=== PATIENT | male | born 1955 | race Caucasian/White ===

== ENCOUNTER 2016-07-02 08:25 | Inpatient (IN) | payer OTHER ==
--- NOTE | 2016-06-25 14:38 | NUR ---
JOINT CAMP: Patient attended joint camp at [facility], patient is coming in for left knee replacement on 07/02/16. Patient does have stairs to enter the home but no stairs in the home. Patient is planning to have Lisa Martinez) to have for help post discharge and she will be transporting patient home. Patient does have someone at home helping with meals and cooking. Patient has never received Home health or SNF services, but has been connected with outpatient physical therapy. Patient has bath bench,elevated toilet seat,beside commode and walker.
[2016-07-02] VITALS (10 sets, daily range): BP systolic 136–159; BP diastolic 74–99; PULSE 66–81; RESP 10–20; O2SAT 93–99
[~2016-07-02] VITALS: Ht 179.1 cm; Wt 96.9 kg
[2016-07-02] MEDS: Lactated Ringer's 1,000 ML IV SCH ×3 (05:00→10:17)
[~2016-07-02 08:25] MED LIST: CeFAZolin 2 Gm/50 mL D5W IV Premix IV ONE; GABA-500 PO; IBUP200C PO; NAPR220C11 PO
[2016-07-02] MEDS ORDERED: fentaNYL-PF 50 mCg/mL 2 mL Inj ONE (08:34)
--- NOTE | 2016-07-02 09:56 | PCM.HPANE ---
Patient Data Surgeon Admitting Provider: Attending Provider:Javed Cortez DO Primary Care Physician:Yonatan Corey MD Other Provider:Mario Doss Anesthesia Reason for Visit Left Knee Arthritis Ht/WT & BMI Height (Feet): 5 Height (Inches): 10.50 Weight (Kilograms): 97.7 Body Mass Index 30.00 Allergies Coded Allergies: hydrocodone (Verified Allergy, Unknown, gi upset, 06/27/16) Uncoded Allergies: CODIENE (Allergy, Unknown, gi upset, 07/02/16) Past Anesthesia History Anesthesia History: Denies:: Abnormal Airway, Anesthesia Reactions, Difficult Intubation, Fam Anesthesia Reaction Diabetes History Hx Diabetes?: No MRSA MRSA: No Medications Hypertension Medication: No Home Meds Incl Beta Zak: No Reported Medications Ibuprofen 200 Mg [id number] Mg PO Q6H PRN For Pain Ref 0 06/27/16 Gabapentin 100 Mg [id number] Mg PO TID 30 Days Ref 0 06/27/16 Naproxen Sodium (Aleve)220 Mg [id number] Mg PO PRN For Pain 06/27/16 History HEENT History: Denies:: Abnormal Airway Cataracts Difficult Intubation Dysphagia Glaucoma Hearing Problem Sinus Problem TMJ Cardiovascular History: Denies:: AICD Abdominal Aortic Aneurism Cardiac Surgery Chest Pain Congestive Heart Failure Coronary Artery Disease Edema Heart Murmur Hypertension Irregular Heartbeat Pacemaker Hx of Respiratory Problem?: Yes Respiratory History: Positive for:: Asthma (with seasonal allergies) Use of Inhalers / NEBS (with illnesses) Denies:: COPD Emphysema Oxygen Administration Pneumonia Tuberculosis Use of C-PAP Machine Hx Neurologic Problems?: No Neurological History: Denies:: CVA Dementia Dizziness Headaches Multiple Sclerosis Parkinson's Disease Seizures TIA Hx of GI Problems?: Yes Gastrointestinal History: Positive for:: Gastroesphageal Reflux Heartburn Denies:: Cirrhosis Gall Bladder Disease Gastrointestinal Bleeding Hepatitis Hiatal Hernia Liver Disease Rectal Bleeding Hx of Problems?: No Genitourinary History: Denies:: Kidney Stones Urinary Tract Infection Male Hx: Denies:: Prostate Problems Scrotal Mass Testicular Surgery Skin History: Denies:: History Skin Disorders? Pressure Ulcers Hx Musculoskeletal Problems?: Yes Musculoskeletal History: Positive for:: Back Injury (hx back injury 2003, GERARDO) Musculoskeletal Trauma (left knee current admission problem) Osteoarthritis (right knee also problematic, knuckles, wrists) Denies:: Fibromyalgia Joint Replacement Myasthenia Gravis Systemic Lupus Hx of Psycho/Social Problems?: No Psycho Social History: Denies:: Anxiety Hx Depression Hx Surgeries?: Yes (CTR, knee scope) Hx Any Other Health Problems?: Yes Other History: Denies:: Cancer Thyroid Disease History Blood Transfusions: Positive for:: Accept Blood Products? Denies:: Blood Transfusions Hx Diabetes: No Hx Alcohol Use: YesAlcoholic Drinks Per Day: 2 -3 beers monthlyHx Substance Use: Yes (marijuana daily)Have You Smoked inLast 12 mo: No Stop/Bang Treated for Sleep Apnea?: No Do You Have a CPAP Machine?: No S-Snoring: Do You Snore Loudly: No T-Tired: feel tired, fatigued: Yes O-Obsered: Observed not breath: No P-Blood Pressure: treated: No B- Body Mass Index > 35 kg/m2: No A- Age over 50: Yes N- Neck Large Circumference: No G- Gender Male: Yes LAWRENCE Total Score: 3 LAWRENCE Risk Assessment: Low Risk, <3 Yes Risk Assessment Category Category 1A: Patient has history of documented sleep apnea, and HAS NOT received any narcotic, sedative or anesthesia administration during this stay. Category 1B: Patient has history of documented sleep apnea, and HAS received any narcotic , sedative or anesthesia administration during this stay Category 2: Patient has SUSPECTED Obstructive Sleep Apnea, and HAS received any narcotic , sedative or anesthesia administration during this stay. Category 3: Patient has SUSPECTED Obstructive Sleep Apnea and HAS NOT received narcotic, sedative or anesthesia administration during this stay. Category 4: Outpatient in Procedural Areas with known sleep apnea or who screen positive for High Risk via the STOP/BANG questionnaire. Exam Exam Vital Signs Vital Signs Date Time Temp Pulse Resp B/P Pulse Ox O2 Delivery O2 Flow Rate FiO2 07/02/16 09:04 36.3 69 18 97 Room Air General Appearance: Oriented X3 HEENT/AIRWAY: MP 2 Lungs: Normal Air Movement Heart: Regular Rate/Rhythm Meds/Labs/Diagnostics Admission Meds Current Medications Lactated Ringer's 1,000 ml @ 120 mls/hr Q8H20M IV Last administered on t 08:25; Start 07/02/16 at 05:00; Stop 07/02/16 at 13:19 Vancomycin HCl/ Dextrose/Water (Vancocin Inj/ D5W) 500 ml @ 333.333 mls/hr ONCE ONCE IV Last administered on 07/02/16t 09:16; Start 07/02/16 at 08:00; Stop 07/02/16 at 09:29; Status DC Plan Impression Patient chart reviewed, patient interviewed and anesthestic plan with risks, benefits, and alternatives discussed, and informed consent obtained. NPO Status: WATER AT 0600 ASA Physical Status: ASA2 Mod Systemic Disease Anesthetic Plan: GA, Regional Block Bene/Risks/Altern/Consents: Yes HP Complete Prior to Induction: Yes Donny Cifuentes MD Jul 02, 2016 09:56
[2016-07-02] MEDS ORDERED: Lactated Ringer's 500 ML IV PRN (09:58)
[2016-07-02] MEDS ORDERED: Lactated Ringer's 1,000 ML IV SCH (09:58)
[2016-07-02] MEDS ORDERED: MetoCLOpramide 5 mg/mL 2 mL Inj IVPUSH PRN (10:00)
[2016-07-02] MEDS ORDERED: Dexamethasone 4 mg/mL Inj IVPUSH PRN (10:00)
[2016-07-02] MEDS ORDERED: Ondansetron 2 mg/mL 2 mL Inj IVPUSH PRN ×2 (10:00→12:20)
[2016-07-02] MEDS ORDERED: Phenylephrine 10,000 mCg/mL Inj IVPUSH PRN (10:00)
[2016-07-02] MEDS ORDERED: EPHEDrine Sulfate 50 mg/mL Inj IVPUSH PRN (10:00)
[2016-07-02] MEDS ORDERED: HYDROmorphone 1 mg/mL Inj IVPUSH PRN ×2 (10:00→12:20)
[2016-07-02] MEDS ORDERED: Labetalol 5 mg/mL 4 mL Inj IV PRN (10:00)
[2016-07-02] MEDS ORDERED: Ropivacaine-PF 0.5% 30 mL Inj EPIDURAL ONE (10:42)
[2016-07-02] MEDS ORDERED: diphenhydrAMINE 25 mg Capsule PO PRN (12:20)
[2016-07-02] MEDS ORDERED: Polyethylene Glycol (PEG) 17 Gm Powder PO PRN (12:20)
[2016-07-02] MEDS ORDERED: Magnesium Hydroxide 10 mL Oral Concentration PO PRN (12:20)
[2016-07-02] MEDS: fentaNYL-PF 50 mCg/mL 2 mL Inj IVPUSH PRN ×2 (12:50→13:32)
--- NOTE | 2016-07-02 13:16 | DRSVH ---
PROCEDURE: X-RAY LEFT KNEE, ONE OR TWO VIEWS ([id number]) INDICATIONS: post op TECHNIQUE: 2 view(s) of the knee acquired. COMPARISON: 12/13/2015 FINDINGS: Bones: Patient is status post knee joint arthroplasty. Hardware components are in expected position s. Visualized bony structures are intact. Soft tissues: Overlying postoperative changes are noted. There is dressing artifact over the anterio r knee. IMPRESSION: Acute postoperative changes of total left knee arthroplasty with expected appearance Dictated by: Colby Porter M.D. on 07/02/2016 at 13:14 Approved by: Colby Porter M.D. on 07/02/2016 at 13:15
--- NOTE | 2016-07-02 13:22 | PCM.ANEP1 ---
Post Anesthesia Phase 1 PACU Phase 1 Assessment Vital Signs Vital Signs Date Time Temp Pulse Resp B/P Pulse Ox O2 Delivery O2 Flow Rate FiO2 07/02/16 12:51 78 14 149/74 99 Simple Mask 10 07/02/16 12:35 81 14 155/99 98 Simple Mask 10 07/02/16 12:32 36.3 79 13 145/90 98 Simple Mask 10 07/02/16 09:04 36.3 69 18 97 Room Air Anesthetic Administered: GA Level of Alertness: Awake, talking Pain: No Nausea or Vomiting: No Airway Device: Oralpharangeal Airway Lungs: Clear to Auscultation, Normal Air Movement Donny Cifuentes MD Jul 02, 2016 13:22
--- NOTE | 2016-07-02 13:22 | PCM.ANEP2 ---
Post Anesthesia Evaluation ASA/CMS Post Anesthesia VS in Patient's Normal Range?: Yes Resp Stable; Airway Patent?: Yes CV Function & Hydration Stable: Yes Mental Status Recovered?: Yes Pain control Satisfactory?: Yes N/V Control Satisfactory?: Yes Donny Cifuentes MD Jul 02, 2016 13:22
--- NOTE | 2016-07-02 14:13 | OP ---
[address] [address] OPERATIVE REPORT PATIENT: SUYAPA KEITA : 1955 MR#: [id number] ADMIT: 07/02/2016 JOB ID: [id number] DATE OF SURGERY: 07/02/2016 PREOPERATIVE DIAGNOSIS(ES): Left knee degenerative joint disease. POSTOPERATIVE DIAGNOSIS(ES): Left knee degenerative joint disease. PROCEDURE: Left total knee arthroplasty. SURGEON: Javed Cortez DO RESTUARANT CREW WORKER: Yary Hair PA-C INDICATIONS: The patient is a 60-year-old male with left knee severe degenerative arthritis with failed conservative measures and wished to proceed with a left total knee arthroplasty. We discussed the risks, benefits, and possible complications of surgery. All questions were answered. He wished to proceed. The nursing home assistant administrator was required for the successful completion of this procedure. PROCEDURE IN DETAIL: The patient was brought to the operating room. He was given a preoperative antibiotic and adductor canal block as well as general anesthetic. The left lower extremity was sterilely prepped and draped. 1 g TXA was given preoperatively and a tourniquet was used for hemostasis. An incision was made over the anterior medial knee. Dissection was carefully carried through the subcutaneous tissue and electrocautery was used for hemostasis as needed. An incision was made in his quad tendon leaving a cuff of tendon to repair in the medial aspect. This was taken along the medial retinaculum and down onto the proximal medial tibial face. A small subperiosteal medial release was performed in order to gain exposure. The patella was everted. A portion of the fat pad was removed. A portion of the anterior horn, medial and lateral meniscus was removed. The femur was then instrumented with the intramedullary red and a 5 degree distal valgus cut angle was chosen with 10 mm planned resection. The distal femoral cutting block was pinned into position. The cut was performed. The femur was then sized, and felt to be a size 7. The tibia was next prepared with the extramedullary tibial cutting guide placed parallel to the long axis of the tibia in the AP and medial lateral planes, and a conservative tibial resection making sure that the tibial cutting guide was parallel to the long axis of the tibia, and after removing the cut surface, the femur was then readdressed and the distal femoral cuts were performed, completed with an osteotome. The notch cutting guide was then placed and pinned into position and the notch cut was made. The knee was then trialed with a size 7 femur, 7 tibia and this was fairly tight medially. Some additional medial release was performed as well as removing some medial osteophytes and this helped with achieving full flexion, full extension with equal gaps medially and laterally and the patella was then resurfaced with a free hand type technique, cut from initial thickness of 25 to a thickness of about 14. A 41 mm patellar button was chosen, drilled for and trialed, had excellent tracking. The femur was drilled. The tibia was drilled and punched and the components were then cemented into position beginning with the DePuy Attune fixed bearing 7 tibia followed by the DePuy Attune fixed bearing posterior stabilized 7 femur and the 41 mm patellar button. A 5 mm thick insert was chosen, impacted into position and the knee was held in some flexion while the cement was allowed to polymerize. The wound was irrigated and the tourniquet was let down. All excess cement was removed. Electrocautery was used. We implanted the final DePuy Attune posterior stabilized 5 thick poly. It allowed excellent tracking of the patella with equal gaps medially and laterally, full flexion, full extension. The wound was then closed with interrupted #1 Surgilon to close the medial retinaculum and quad tendon. The remainder of the quad tendon and retinaculum were closed with 0-Vicryl. The subcu was closed with 2-0 V lock and the skin was closed with a running subcuticular 3-0 V lock. Naropin was added as an adjunct local anesthetic. Sterile dressings were applied. The patient tolerated the procedure well. BLOOD LOSS: 100 cc. POSTOPERATIVE PROTOCOL: Have the patient weightbear to tolerance. Use a walker for ambulation and plan use of Percocet for postop pain and aspirin for DVT prophylaxis.
--- NOTE | 2016-07-02 14:40 | NUR ---
Arrived on Unit Patient arrived on floor in bed from PACU in stable condition. Dressing CDI. IV patent and NS @100. 95% 2L. A&Ox3. Patient reports 4/10 knee pain and denies nausea at this time. Patient orientated to call light, bed, and menu. Call light, phone, and tray table within reach. Will continue to monitor patient hourly.
[2016-07-02] MEDS ORDERED: Dexamethasone 4 mg/mL Inj ONE (14:47)
[2016-07-02] MEDS ORDERED: Ondansetron 2 mg/mL 2 mL Inj ONE (14:47)
[2016-07-02] MEDS ORDERED: Propofol 10,000 mCg/mL 20 mL Inj ONE (14:47)
[2016-07-02] MEDS ORDERED: MetoCLOpramide 5 mg/mL 2 mL Inj ONE (14:47)
[2016-07-02] MEDS: 0.9% Sodium Chloride 1,000 ML IV SCH ×2 (15:24→22:19)
[2016-07-02] MEDS: oxyCODONE-Acetamin 5-325 mg Tablet PO PRN (17:49)
[2016-07-02] MEDS: Sodium Chloride LOK Flush 10 mL Syringe IV SCH (17:49)
[2016-07-02] MEDS: CeFAZolin Inj 2 GM in IV Premix 1 EACH IV SCH (21:05)
[2016-07-02] MEDS: Senna-Docusate 8.6-50 mg Tablet PO SCH (21:10)
[2016-07-03] MEDS: Sodium Chloride LOK Flush 10 mL Syringe IV SCH ×3 (00:30→16:50)
[2016-07-03 02:03] VITALS: BP 160/89; PULSE 87; RESP 18; O2SAT 99
[2016-07-03] MEDS: oxyCODONE-Acetamin 5-325 mg Tablet PO PRN ×5 (02:45→20:20)
[2016-07-03] MEDS: CeFAZolin Inj 2 GM in IV Premix 1 EACH IV SCH (04:12)
[2016-07-03 05:49] VITALS: BP 153/96; PULSE 71; RESP 22; O2SAT 95
[2016-07-03 07:20] LABS: BASOPHILS % (AUTO) 0.1 % (0-3); EOSINOPHILS % (AUTO) 0.2 % (0-5); MONOCYTES % (AUTO) 15.6 % (4-12); Mean Corpuscular Volume 91.7 fL (81-100); NEUTROPHILS % (AUTO) 64.6 % (40-74); Platelet Count 200 bil/L (150-400)
[2016-07-03] MEDS: 0.9% Sodium Chloride 1,000 ML IV SCH ×2 (08:19→16:50)
[2016-07-03] MEDS: Senna-Docusate 8.6-50 mg Tablet PO SCH ×2 (08:22→20:21)
--- NOTE | 2016-07-03 09:32 | PCM.PNORTH ---
Subjective Date of Service: Jul 03, 2016 Visit Information: Reason for Visit Left Knee Arthritis Surgery/Surgery Date Post-Op Day # Date of Admission: Jul 02, 2016 at 14:46 Hospital Day # Subjective Found patient awake and alert and supine in bed with. No complaints pain at this time. Discussed participation with formal physical therapy and encouraged this for best results. Patient indicates that he is having his girlfriend set of his postop physical therapy and believes he will begin next Friday. Patient indicates he does have his girlfriend at home which will be his help when he discharges. Patient states that he has 15 steps to areas home but that he is experienced with sitting on the steps and moving up one at a time and feels that he will be able to enter his home this way without any problem. I have encouraged him to discuss this with physical therapy and let them know that he has practiced this prior to his surgery. I have also encouraged patient to discontinue IV pain medication as soon as possible moved by mouth pain medication in anticipation of discharge. Postop General: No Complaints, No Shortness of Breath, No Chest Pain Pain Management: PO, IV Push Objective Exam Objective Orientation: Alert and oriented 3 and pleasant. Dressing: Interoperative dressing is clean dry and intact Wound: Wound is not observed today Compartments: Calf and thigh are soft and nontender Mobility/sensation: Toe wiggle and sensation are intact at left lower extremity distally Abduction wedge: None HAJA hose: None Sharma: None Wound VAC: None Drain: None Gait: No gait with physical therapy as of this time. Vital Signs and I/O Vital Sign - Last Date Time Temp Pulse Resp B/P Pulse Ox O2 Delivery O2 Flow Rate FiO2 07/03/16 05:49 36.6 71 22 153/96 95 Room Air 07/02/16 14:51 3.00 Intake and Output 07/02/16 07/02/16 07/03/16 Cumulative From/Thru 15:00 23:00 07:00 06/27/16 10:33 - 07/03/16 06:30 Intake Total 1670 ml 600 ml 1759 ml 4029 ml Output Total 100 ml 900 ml 2575 ml 3575 ml Balance 1570 ml -300 ml -816 ml 454 ml Intake Oral 600 ml 700 ml 1300 ml IV Total 1670 ml 1059 ml 2729 ml Output Urine Total 900 ml 2575 ml 3475 ml Estimated Blood Loss 100 ml 100 ml # Bowel Movements 0 0 Lab & Micro Results Laboratory Tests Test 07/03/16 06:55 White Blood Count 9.9th/mm3 (3.8-10.1) Red Blood Count 4.20mil/mm3 (4.40-5.80) Hemoglobin 13.0g/dL (13.8-17.2) Hematocrit 38.5% (41.0-50.0) Mean Corpuscular Volume 91.7fL (81-100) Mean Corpuscular Hemoglobin 31.0pg (27.0-35.0) Mean Corpuscular Hemoglobin Concent 33.8% (32.0-37.0) Red Cell Distribution Width 12.5% (12.3-15.4) Platelet Count 200bil/L (150-400) Neutrophils (%) (Auto) 64.6% (40-74) Lymphocytes (%) (Auto) 19.3% (14-46) Monocytes (%) (Auto) 15.6% (4-12) Eosinophils (%) (Auto) 0.2% (0-5) Basophils (%) (Auto) 0.1% (0-3) Sodium Level 138mEq/L (134-144) Potassium Level 3.9mEq/L (3.5-5.2) Chloride Level 101mEq/L (97-108) Carbon Dioxide Level 24mmol/L (18-29) Blood Urea Nitrogen 15mg/dL (6-24) Creatinine 0.76mg/dL (0.76-1.27) Estimat Glomerular Filtration Rate 112mL/min (>59) Glucose Level 134mg/dL (60-99) Calcium Level 8.6mg/dL (8.5-10.1) Result Diagram: 07/03/1655 07/03/1655 General Appearance: Alert, Oriented X3, Cooperative, No Acute Distress Extremities: No Compartment Syndrom Noted, Thigh & Calf Soft/Nontender Postop Sensory Motor: Distal Motor Intact, Movement in Toes, Distal Sensation Intact Activity: Activity per PT, Ambulate with PT (weightbearing as tolerated on the left lower extremity using a front-wheeled walker) Catheters: None Assessment & Plan Impression Patient is a 60-year-old male who has undergone a left total knee arthroplasty on 07/02/2016. He indicates his right knee is also in very poor condition and plans to have this done as soon as possible on recovery from the left knee. He does have a girlfriend at home which will be helping him and he does have 15 stairs stand or his home which we have discussed today. At this point he is doing very well and is repaired to start physical therapy today. Problems: Plan Postop day # 1 from left total knee arthroplasty performed on 07/02/[address] Javed Cortez. Weight bearing status: Weightbearing as tolerated on the left lower extremity using a front wheeled walker Mobility aid: Front wheeled walker Immobilization: None Precautions: Physical therapy: Continue formal physical therapy for mobility, gait and safety. Patient has a prescription for outpatient physical therapy and his girlfriend is setting this up at this time. Patient does 15 steps to enter his home but he has practiced sitting and ascending the steps backwards and is proficient with this. Pain control: Continue by mouth pain medications in the form of Percocet and Vistaril. Discontinue IV pain medications as soon as possible beginning today. DVT prophylaxis: ASA 325 mg EC by mouth twice a day 6 weeks postop for DVT prophylaxis Wound care: Keep wound and dressing clean dry and intact until seen in office at 2 weeks postop Infectious DZ: None Sharma: None Dressing: Interoperative dressing is clean dry and intact and will be changed tomorrow on postop day #2, 07/04/2016 Drain: None Abduction wedge: None HAJA hose: None. Bilateral thigh-high HAJA hose will be ordered today Nursing communication: Please move patient awakened from IV pain medications as soon as possible and use Percocet with Vistaril as needed. 2-week follow-up: Follow-up in 2 weeks that [facility] orthopedic clinic on prearranged appointment with mid-level provider for wound check and suture removal. 6-week follow-up: Follow-up in 6 weeks at [facility] orthopedic clinic with Dr. Javed Cortez with left 2 view knee x-ray on arrival. Plan: Patient will participate in formal physical therapy and likely discharge on postop day 2 or 3 to home with girlfriend as caregiver. Discharge instructions: TBD Discharge plan: Anticipate discharge to home with girlfriend as caregiver on postop day 2 or 3. VTE Prophylaxis: SCDs, HAJA Hose, Other (ASA 325 mg EC by mouth twice a day 6 weeks postop for DVT prophylaxis.) Michele Bobo PA-C Jul 03, 2016 09:24
[2016-07-03 10:03] VITALS: BP 127/69; PULSE 77; RESP 20; O2SAT 96
--- NOTE | 2016-07-03 13:42 | NUR ---
Evaluation completed. Please go to "Notes" then click on "Assessments and Notes" (bottom left corner of screen). Then select appropriate discipline tab on top of screen.
[2016-07-03 13:52] VITALS: BP 147/79; PULSE 79; RESP 18; O2SAT 93
--- NOTE | 2016-07-03 13:54 | NUR ---
Social Work: Screening Data: Pt is a 60 y/o male admitted for left knee arthritis. Pt's PCP is Dr Corey. Pt's insurance is [employer]. Readmit score not listed. EMR reviewed. PT recommending home with possible need for outpt PT. No d/c planning needs identified at this time. STATISTICAL MODELER will continue to follow if needs arise. Assessment: Pt who is independent at baseline. Plan: Pt will d/c home via POV when medically stable with outpt PT. No d/c planning needs identified at this time. STATISTICAL MODELER will continue to follow if needs arise. SHEA Diaz
--- NOTE | 2016-07-03 15:50 | NUR ---
Evaluation completed. Please go to "Notes" then click on "Assessments and Notes" (bottom left corner of screen). Then select appropriate discipline tab on top of screen.
[2016-07-03 17:02] VITALS: BP 128/76; PULSE 83; RESP 16; O2SAT 97
--- NOTE | 2016-07-03 19:16 | NUR ---
Ambulation / Pain Pt ambulating well SBA FWW to bathroom. Needs reminded to slow down some at times. Pain mostly controlled with Toradol and Percocet. Care continues
[2016-07-03 20:10] VITALS: BP 125/68; PULSE 78; RESP 18; O2SAT 96
[2016-07-04] MEDS: Sodium Chloride LOK Flush 10 mL Syringe IV SCH ×3 (00:30→16:30)
[2016-07-04] MEDS: 0.9% Sodium Chloride 1,000 ML IV SCH ×3 (04:19→23:06)
[2016-07-04 04:46] VITALS: BP 142/75; PULSE 63; RESP 20; O2SAT 97
--- NOTE | 2016-07-04 06:12 | NUR ---
Pain On initial assessment patient states pain not controlled with Percocet 5/325 ii tabs. Percocet x2 and oxycodone 10mg administered and effective per patient. Second dose of oxycodone administered later in shift with positive results. Currently resting without any complaints.
[2016-07-04] MEDS: oxyCODONE-Acetamin 5-325 mg Tablet PO PRN ×4 (07:27→21:30)
--- NOTE | 2016-07-04 07:29 | NUR ---
dSG CHANGE MD Bobo changed dressing this morning. VLAD wrap removed. Silverlon placed over incision, ABD and stockinet over to keep covered. Extra materials left with pt for home changes. All instructions reviewed with pt per MD Bobo. Care continues
--- NOTE | 2016-07-04 07:55 | PCM.PNORTH ---
Subjective Date of Service: Jul 04, 2016 Visit Information: Reason for Visit Left Knee Arthritis Surgery/Surgery Date Post-Op Day # Date of Admission: Jul 02, 2016 at 14:46 Hospital Day # Subjective Found patient sleeping and easily awaken this morning. No complaints of pain at this time. Discussed patient's performance with physical therapy yesterday which was very good. Changed interoperative dressing this morning. Discussed with patient that he may discharge to home today if he would like after his therapy session this morning. Patient advises that his girlfriend is unable to take him home tomorrow likely because of snow and I advised him that he must discharge tomorrow at the latest and that he can discharged today if he continues to participate well with physical therapy and that this might be something he should consider. I will also asked him to talk with social work therapist regarding possibly using a cab to get home if he must go tomorrow. Postop General: No Complaints, No Shortness of Breath, No Chest Pain Pain Management: PO Objective Exam Objective Orientation: Alert and oriented 3 and pleasant. Dressing: Interoperative dressing is clean dry and intact. Dressing is changed to postop dressing with Silverlon, ABD and fishnet. Wound: Surgical wound is in very good condition with no focal erythema, swelling or drainage. Compartments: Calf and thigh are soft and nontender. Mobility/sensation: Toe wiggle and sensation are intact at left lower extremity distally Abduction wedge: None HAJA hose: None Sharma: None Wound VAC: None Drain: None Gait: Gait 100 feet yesterday with formal physical therapy on 07/03/2016. Vital Signs and I/O Vital Sign - Last Date Time Temp Pulse Resp B/P Pulse Ox O2 Delivery O2 Flow Rate FiO2 07/04/16 04:46 37.0 63 20 142/75 97 Room Air 07/02/16 14:51 3.00 Intake and Output 07/03/16 07/03/16 07/04/16 Cumulative From/Thru 15:00 23:00 07:00 06/27/16 10:33 - 07/04/16 05:54 Intake Total 737 ml 300 ml 5066 ml Output Total 900 ml 400 ml 4875 ml Balance -163 ml -100 ml 191 ml Intake Oral 737 ml 300 ml 2337 ml IV Total 0 ml 2729 ml Output Urine Total 900 ml 400 ml 4775 ml Estimated Blood Loss 100 ml # Bowel Movements 0 0 0 Result Diagram: 07/03/16 0655 07/03/16 0655 General Appearance: Alert, Oriented X3, Cooperative, No Acute Distress Extremities: No Compartment Syndrom Noted, Thigh & Calf Soft/Nontender Postop Sensory Motor: Distal Motor Intact, Movement in Toes, Distal Sensation Intact Activity: Activity per PT, Ambulate with PT (weightbearing as tolerated on the left lower extremity using a front-wheeled walker) Catheters: None Assessment & Plan Impression Patient is a 60-year-old male who is status post left total knee arthroplasty. He participated well with formal therapy on postop day 1 and anticipates discharge on postop day 2 or 3. Problems: Plan Postop day # 2 from left total knee arthroplasty performed on 07/02/[address] Javed Cortez. Weight bearing status: Weightbearing as tolerated on the left lower extremity using a front wheeled walker Mobility aid: Front wheeled walker Immobilization: None Precautions: Physical therapy: Continue formal physical therapy for mobility, gait and safety. Patient has a prescription for outpatient physical therapy and his girlfriend is setting this up at this time. Patient does have 15 steps to enter his home but he has practiced sitting and ascending the steps backwards and is proficient with this. Pain control: Continue by mouth pain medications in the form of Percocet and Vistaril. Discontinue IV pain medications as soon as possible beginning today. DVT prophylaxis: ASA 325 mg EC by mouth twice a day 6 weeks postop for DVT prophylaxis Wound care: Keep wound and dressing clean dry and intact until seen in office at 2 weeks postop Infectious DZ: None Sharma: None Dressing: Intraoperative dressing is changed to Silverlon, ABD and fishnet dressing this morning. Wound is in very good condition with no focal swelling, erythema or drainage Drain: None Abduction wedge: None HAJA hose: None. Bilateral thigh-high HAJA hose should be fitted today. Nursing communication: Please move patient awakened from IV pain medications as soon as possible and use Percocet with Vistaril as needed. Nursing please fit patient with bilateral thigh-high HAJA hose today. Nursing please help patient contact social work therapist for discussion regarding his transport home depending on the day which he leaves. 2-week follow-up: Follow-up in 2 weeks that [facility] orthopedic clinic on prearranged appointment with mid-level provider for wound check and suture removal. 6-week follow-up: Follow-up in 6 weeks at [facility] orthopedic clinic with Dr. Javed Cortez with left 2 view knee x-ray on arrival. Plan: Patient will participate in formal physical therapy and likely discharge on postop day 2 or 3 to home with girlfriend as caregiver. Discharge instructions: Weightbearing as tolerated on the left lower extremity. Work on gentle range of motion at the knee to achieve flexion to 90 and full extension by the time of two-week appointment. Use for I will walker and/or crutches as needed for mobility and safety. Keep wound dressing in place and keep wound and dressing clean dry and intact until seen in office in 2 weeks. Patient may shower but should keep wound and dressing covered and dry. Discharge plan: Anticipate discharge to home with girlfriend as caregiver on postop day 2 or 3. VTE Prophylaxis: Mis, HAJA Earl, Other (ASA 325 mg EC by mouth twice a day 6 weeks postop for DVT prophylaxis.) Michele Bobo PA-C Jul 04, 2016 07:39
[2016-07-04 08:46] LABS: BASOPHILS % (AUTO) 0.6 % (0-3); EOSINOPHILS % (AUTO) 2.3 % (0-5); MONOCYTES % (AUTO) 12.6 % (4-12); Mean Corpuscular Hemoglobin 30.6 pg (27.0-35.0); Mean Corpuscular Volume 93.1 fL (81-100); Platelet Count 194 bil/L (150-400)
[2016-07-04] MEDS: hydrOXYzine Pamoate 25 mg Capsule PO PRN ×3 (09:39→23:30)
[2016-07-04] MEDS: Senna-Docusate 8.6-50 mg Tablet PO SCH ×2 (10:35→21:29)
[2016-07-04 13:42] VITALS: BP 127/78; PULSE 91; RESP 18; O2SAT 95
--- NOTE | 2016-07-04 14:53 | NUR ---
Social Work Readiness for Discharge: SW met with patient at bedside to discuss discharge and transport plan. Patient states plan as home with support from significant other. Patient states that his daugher is available to transport him home upon discharge and no discharge transport assistance needed at this time. Patient states he to follow up at [facility] at discharge. Patient denied an further discharge needs at this time. Patient states being ready for discharge today. SW to follow. PLAN: Home with daughter transport assistance and follow up outpt at [facility] clinic. SW to follow. Sarah Rivera
--- NOTE | 2016-07-04 18:25 | NUR ---
Ambulation Pt SBA FWW to bathroom. Has worked with PT to go up steps. Pt has some increased pain with ambulation but not uncontrolled with Percocet, Vistaril, and Toradol. Care continues
[2016-07-04 20:36] VITALS: BP 126/79; PULSE 78; RESP 18; O2SAT 97
[2016-07-05] MEDS: Sodium Chloride LOK Flush 10 mL Syringe IV SCH ×2 (00:15→08:30)
[2016-07-05 05:26] VITALS: BP 117/65; PULSE 65; RESP 16; O2SAT 94
--- NOTE | 2016-07-05 06:14 | NUR ---
Pain c/o left knee pain x2 this shift. Prn Percocet and oxycodone alternated and effective. Currently resting without any complaints.
--- NOTE | 2016-07-05 06:15 | PCM.PNORTH ---
Subjective Date of Service: Jul 05, 2016 Visit Information: Reason for Visit Left Knee Arthritis Surgery/Surgery Date Post-Op Day # Date of Admission: Jul 02, 2016 at 14:46 Hospital Day # Subjective Found patient to sleep this morning and easily awakened. Discussed discharge today and patient is aware of this and plans on discharge today on 07/05/2016 with transportation by his daughter to home. Patient will be cared for by his significant other. No complaints pain at this time. Postop General: No Complaints, No Shortness of Breath, No Chest Pain Pain Management: PO Objective Exam Objective Orientation: Alert and oriented 3 and pleasant. Dressing: Wound: Wound not observed today. Compartments: Calf and thigh are soft and nontender. Mobility/sensation: Toe wiggle and sensation are intact at left lower extremity distally. Abduction wedge: None HAJA hose: HAJA hose are in place bilaterally Sharma: None Wound VAC: None Drain: None Gait: Gait 150-200 feet with formal physical therapy on 07/04/2016. Recommendation is for discharge to home with outpatient physical therapy. Vital Signs and I/O Vital Sign - Last Date Time Temp Pulse Resp B/P Pulse Ox O2 Delivery O2 Flow Rate FiO2 07/05/16 05:26 36.5 65 16 117/65 94 Room Air 07/02/16 14:51 3.00 Intake and Output 07/04/16 07/04/16 07/05/16 Cumulative From/Thru 15:00 23:00 07:00 06/27/16 10:33 - 07/05/16 05:49 Intake Total 893 ml 400 ml 6359 ml Output Total 4875 ml Balance 893 ml 400 ml 1484 ml Intake Oral 893 ml 400 ml 3630 ml IV Total 0 ml 2729 ml Output Urine Total 4775 ml Estimated Blood Loss 100 ml # Voids 3 3 6 # Bowel Movements 0 0 0 Lab & Micro Results Laboratory Tests Test 07/04/16 08:09 White Blood Count 9.0th/mm3 (3.8-10.1) Red Blood Count 4.32mil/mm3 (4.40-5.80) Hemoglobin 13.2g/dL (13.8-17.2) Hematocrit 40.2% (41.0-50.0) Mean Corpuscular Volume 93.1fL (81-100) Mean Corpuscular Hemoglobin 30.6pg (27.0-35.0) Mean Corpuscular Hemoglobin Concent 32.8% (32.0-37.0) Red Cell Distribution Width 13.0% (12.3-15.4) Platelet Count 194bil/L (150-400) Neutrophils (%) (Auto) 61.0% (40-74) Lymphocytes (%) (Auto) 23.4% (14-46) Monocytes (%) (Auto) 12.6% (4-12) Eosinophils (%) (Auto) 2.3% (0-5) Basophils (%) (Auto) 0.6% (0-3) Sodium Level 136mEq/L (134-144) Potassium Level 4.4mEq/L (3.5-5.2) Chloride Level 101mEq/L (97-108) Carbon Dioxide Level 21mmol/L (18-29) Blood Urea Nitrogen 15mg/dL (6-24) Creatinine 0.66mg/dL (0.76-1.27) Estimat Glomerular Filtration Rate 131mL/min (>59) Glucose Level 141mg/dL (60-99) Calcium Level 8.5mg/dL (8.5-10.1) Result Diagram: 07/04/16 0809 07/04/16 0809 General Appearance: Alert, Oriented X3, Cooperative, No Acute Distress Extremities: No Compartment Syndrom Noted, Thigh & Calf Soft/Nontender Postop Sensory Motor: Distal Motor Intact, Movement in Toes, Distal Sensation Intact Activity: Activity per PT, Ambulate with PT (weightbearing as tolerated on the left lower extremity using a front-wheeled walker) Catheters: None Assessment & Plan Plan Postop day # 3 from left total knee arthroplasty performed on 07/02/[address] Javed Cortez. Weight bearing status: Weightbearing as tolerated on the left lower extremity using a front wheeled walker Mobility aid: Front wheeled walker Immobilization: None Precautions: Physical therapy: Continue formal physical therapy for mobility, gait and safety. Patient has a prescription for outpatient physical therapy and his girlfriend is setting this up at this time. Patient does have 15 steps to enter his home but he has practiced sitting and ascending the steps backwards and is proficient with this. Pain control: Continue by mouth pain medications in the form of Percocet and Vistaril. DVT prophylaxis: ASA 325 mg EC by mouth twice a day 6 weeks postop for DVT prophylaxis Wound care: Keep wound and dressing clean dry and intact until seen in office at 2 weeks postop Infectious DZ: None Sharma: None Dressing: Postop Dr. Cortez style dressing is clean dry and intact. Drain: None Abduction wedge: None HAJA hose: Bilateral HAJA hose in place Nursing communication: 2-week follow-up: Follow-up in 2 weeks that [facility] orthopedic clinic on prearranged appointment with mid-level provider for wound check and suture removal. 6-week follow-up: Follow-up in 6 weeks at [facility] orthopedic clinic with Dr. Javed Cortez with left 2 view knee x-ray on arrival. Plan: Patient will discharge today with her daughter as a transport driver and girlfriend as caregiver at home. Patient will begin outpatient formal physical therapy as soon as possible post discharge. Discharge instructions: Weightbearing as tolerated on the left lower extremity. Work on gentle range of motion at the knee to achieve flexion to 90 and full extension by the time of two-week appointment. Use front wheeled walker and/or crutches as needed for mobility and safety. Keep wound dressing in place and keep wound and dressing clean dry and intact until seen in office in 2 weeks. Patient may shower but should keep wound and dressing covered and dry. Discharge plan: Discharge to home with significant other as caregiver today on postop day #3, 07/05/2016. VTE Prophylaxis: SCDs, HAJA Hose, Other (ASA 325 mg EC by mouth twice a day 6 weeks postop for DVT prophylaxis.) Michele Bobo PA-C Jul 05, 2016 06:15
--- NOTE | 2016-07-05 06:18 | PCM.DIORTH ---
Ortho Discharge Instruction Date of Service: Jul 05, 2016 Dates of Hospitalization Date of Hospital Admission Jul 02, 2016 at 14:46 Providers Admitting Physician: Javed Cortez DO Primary Care Physician: Yonatan Corey MD Attending Physician: Javed Cortez DO Diet Discharge Diet: No restrictions Activity Discharge Activity-General: Try not to overdue, Be up and about, Balance rest and activity, Ice incision 3-5 time/day for 20min, Activity as pain allows, Activity as energy allows, No driving while taking narcotic Left Lower Extremity: Weight Bearing as tolerated Discharge Assist Device: Front Wheeled Walker Dressing and Incisional Care Discharge Dressing Care: Keep dressing clean, dry & intact, Change soiled dressing Discharge Hygiene: May shower (patient may shower but wound and dressing should be kept clean and dry.), DO NOT soak incision under water, NO bathtub, hot tub or whirlpool Additional Instructions Discharge Instructions Postop day # 2 from left total knee arthroplasty performed on 07/02/[address] Javed Cortez. Weight bearing status: Weightbearing as tolerated on the left lower extremity using a front wheeled walker Mobility aid: Front wheeled walker Immobilization: None Precautions: Physical therapy: Continue formal physical therapy for mobility, gait and safety. Patient has a prescription for outpatient physical therapy and his girlfriend is setting this up at this time. Patient does have 15 steps to enter his home but he has practiced sitting and ascending the steps backwards and is proficient with this. Pain control: Continue by mouth pain medications in the form of Percocet and Vistaril. Discontinue IV pain medications as soon as possible beginning today. DVT prophylaxis: ASA 325 mg EC by mouth twice a day 6 weeks postop for DVT prophylaxis Wound care: Keep wound and dressing clean dry and intact until seen in office at 2 weeks postop Infectious DZ: None Sharma: None Dressing: Intraoperative dressing is changed to Silverlon, ABD and fishnet dressing this morning. Wound is in very good condition with no focal swelling, erythema or drainage Drain: None Abduction wedge: None HAJA hose: None. Bilateral thigh-high HAJA hose should be fitted today. Nursing communication: Please move patient awakened from IV pain medications as soon as possible and use Percocet with Vistaril as needed. Nursing please fit patient with bilateral thigh-high HAJA hose today. Nursing please help patient contact social director for discussion regarding his transport home depending on the day which he leaves. 2-week follow-up: Follow-up in 2 weeks that [facility] orthopedic clinic on prearranged appointment with mid-level provider for wound check and suture removal. 6-week follow-up: Follow-up in 6 weeks at [facility] orthopedic clinic with Dr. Javed Cortez with left 2 view knee x-ray on arrival. Plan: Patient will participate in formal physical therapy and likely discharge on postop day 2 or 3 to home with girlfriend as caregiver. Discharge instructions: Weightbearing as tolerated on the left lower extremity. Work on gentle range of motion at the knee to achieve flexion to 90 and full extension by the time of two-week appointment. Use for I will walker and/or crutches as needed for mobility and safety. Keep wound dressing in place and keep wound and dressing clean dry and intact until seen in office in 2 weeks. Patient may shower but should keep wound and dressing covered and dry. Discharge plan: Anticipate discharge to home with girlfriend as caregiver on postop day 2 or 3. Follow Up Plan Follow Up Plan Patient will be seen at 2 weeks, 6 weeks and 12 weeks postoperatively. Patient will be seen when necessary in the interim. Follow-up Provider (F9): Javed Cortez DO Follow-up appointment: Weeks (follow-up in 2 weeks at [facility] orthopedic clinic on. His appointment with mid-level provider for wound check and suture removal.) Call your provider for: Fever, Chills, Shortness of breath, Vomitting, Drainage at incision Michele Bobo PA-C Jul 05, 2016 06:18
[2016-07-05] MEDS ORDERED: OXYC1TAB24 PO (06:21)
[2016-07-05] MEDS ORDERED: HYDR-3797 PO (06:21)
[2016-07-05] MEDS ORDERED: Aspirin-Expunged Drug, Do Not Renew! PO (06:21)
--- NOTE | 2016-07-05 06:23 | PCM.DC.ORT ---
Discharge Summary Date of Service: Jul 05, 2016 Date of Hospital Admission: Jul 02, 2016 at 14:46 Date of Surgery: Jul 02, 2016 Date of Discharge: Jul 05, 2016 Reason for Hospitalization: Severe left knee osteoarthritis Procedures Performed: Left total knee arthroplasty Hospital Course: Patient was admitted through the preoperative care unit on 07/02/2016 upon processing was taken to the operating room where his procedure was performed without incident. Upon awakening patient was transferred to the postoperative care unit and upon recovery from anesthesia was transferred to the orthopedic care unit where he participated well with formal physical therapy and received a recommendation for discharge to home with outpatient physical therapy. Patient was discharged to home with significant other as caregiver on 2016. Problems: (1) Arthritis of knee, left Status: Acute ICD Code: M19.90 Disposition: Discharged to home with her significant other as caregiver. Orthopedic Follow up Plan: In One Week in my clinic (follow-up in 2 weeks at [facility] orthopedic clinic on 3 wrist appointment with medical provider for wound check and suture removal.) Discharge Instructions: Postop day # 2 from left total knee arthroplasty performed on 07/02/[address] Javed Cortez. Weight bearing status: Weightbearing as tolerated on the left lower extremity using a front wheeled walker Mobility aid: Front wheeled walker Immobilization: None Precautions: Physical therapy: Continue formal physical therapy for mobility, gait and safety. Patient has a prescription for outpatient physical therapy and his girlfriend is setting this up at this time. Patient does have 15 steps to enter his home but he has practiced sitting and ascending the steps backwards and is proficient with this. Pain control: Continue by mouth pain medications in the form of Percocet and Vistaril. Discontinue IV pain medications as soon as possible beginning today. DVT prophylaxis: ASA 325 mg EC by mouth twice a day 6 weeks postop for DVT prophylaxis Wound care: Keep wound and dressing clean dry and intact until seen in office at 2 weeks postop Infectious DZ: None Sharma: None Dressing: Intraoperative dressing is changed to Silverlon, ABD and fishnet dressing this morning. Wound is in very good condition with no focal swelling, erythema or drainage Drain: None Abduction wedge: None HAJA hose: None. Bilateral thigh-high HAJA hose should be fitted today. Nursing communication: Please move patient awakened from IV pain medications as soon as possible and use Percocet with Vistaril as needed. Nursing please fit patient with bilateral thigh-high HAJA hose today. Nursing please help patient contact rn social work for discussion regarding his transport home depending on the day which he leaves. 2-week follow-up: Follow-up in [address] [facility] orthopedic clinic on prearranged appointment with mid-level provider for wound check and suture removal. 6-week follow-up: Follow-up in [address] [facility] orthopedic clinic with Dr. Javed Cortez with left 2 view knee x-ray on arrival. Plan: Patient will participate in formal physical therapy and likely discharge on postop day 2 or 3 to home with girlfriend as caregiver. Discharge instructions: Weightbearing as tolerated on the left lower extremity. Work on gentle range of motion at the knee to achieve flexion to 90 and full extension by the time of two-week appointment. Use for I will walker and/or crutches as needed for mobility and safety. Keep wound dressing in place and keep wound and dressing clean dry and intact until seen in office in 2 weeks. Patient may shower but should keep wound and dressing covered and dry. Discharge plan: Anticipate discharge to home with girlfriend as caregiver on postop day 2 or 3. Management Plan: Patient will be seen at 2 weeks, 6 weeks and 12 weeks postoperatively. Patient will be seen when necessary in the interim. ([Aspirin-Expunged Drug, Do Not Renew!]) 325 MG TABLET 325 MG PO BID Gabapentin (Gabapentin) 100 Mg Capsule 200 MG PO TID Hydroxyzine Pamoate (HydrOXYzine Pamoate) 25 Mg Capsule 25-50 MG PO Q6H PRN PRN For Restlessness oxyCODONE-Acetaminophen 5-325 mg (oxyCODONE-Acetaminophen 5-325 mg) 1 Each Tablet 1-2 TAB PO Q4-6H PRN PRN For Severe Pain Michele Bobo PA-C Jul 05, 2016 06:23
[2016-07-05] MEDS: oxyCODONE-Acetamin 5-325 mg Tablet PO PRN ×2 (06:41→10:10)
[2016-07-05] MEDS: Senna-Docusate 8.6-50 mg Tablet PO SCH ×2 (08:30→10:19)
[2016-07-05] MEDS: 0.9% Sodium Chloride 1,000 ML IV SCH (10:08)
[2016-07-05] MEDS: hydrOXYzine Pamoate 25 mg Capsule PO PRN (10:10)
--- NOTE | 2016-07-05 14:13 | NUR ---
DC Pt leaves via FWW with family to home. All instructions reviewed and pt states that he understands. New medication prescriptions in hand. Denies CP, SOB, Nausea. A&OX4. IV D/Cd.
== END 2016-07-05 14:06 | disposition home or self-care (01) | DRG 302 ==
LOC: SAS 08:25 → OSC 14:46
PROVIDERS: ADMIT Orthopaedic Surgery; ATTEND Orthopaedic Surgery
PROC: 0SRD0J9 Replacement of Left Knee Joint with Synthetic Substitute, Cemented, Open Approach (ICD-10-PCS; principal; 2016-07-02 10:45)
DX: M17.12 Unilateral primary osteoarthritis, left knee (principal); J45.909 Unspecified asthma, uncomplicated; K21.9 Gastro-esophageal reflux disease without esophagitis

== ENCOUNTER 2016-12-17 05:38 | Inpatient (IN) | payer OTHER ==
[2016-12-17] VITALS (14 sets, daily range): BP systolic 117–154; BP diastolic 76–95; PULSE 57–83; RESP 13–20; O2SAT 94–99
[~2016-12-17] VITALS: Ht 180.3 cm; Wt 99.7 kg
[2016-12-17] MEDS: Lactated Ringer's 1,000 ML IV SCH ×3 (05:00→07:27)
[~2016-12-17 05:38] MED LIST changes: +ALBU8.5H2 INHALATION; -CeFAZolin 2 Gm/50 mL D5W IV Premix IV ONE; -GABA-500 PO; -IBUP200C PO; -NAPR220C11 PO
[2016-12-17] MEDS ORDERED: Vancomycin 1,000mg/200 mL NS IV ONE (05:52)
[2016-12-17] MEDS ORDERED: Vancomycin Inj 1,500 MG in 0.9% Sodium Chloride 500 ML IV SCH (06:00)
[2016-12-17] MEDS ORDERED: Bupivacaine Liposome 1.3% 20 mL Inj INFILTRATE SCH (06:00)
[2016-12-17] MEDS ORDERED: CeFAZolin Inj 2 GM in IV Premix 1 EACH IV SCH ×2 (06:00→16:30)
[2016-12-17] MEDS ORDERED: Bupivacaine-MPF 0.5% W/EPI 30 mL Inj INFILTRATE ONE (08:20)
[2016-12-17] MEDS ORDERED: 0.9% Sodium Chloride 10 mL Inj INFILTRATE ONE (08:20)
[2016-12-17] MEDS ORDERED: Lactated Ringer's 1,000 ML IV SCH (08:33)
[2016-12-17] MEDS ORDERED: Lactated Ringer's 500 ML IV PRN (08:33)
--- NOTE | 2016-12-17 08:33 | PCM.HPANE ---
Patient Data Surgeon Admitting Provider: Attending Provider:Javed Cortez DO Primary Care Physician:Yonatan Corey MD Other Provider:Mario Doss Anesthesia Reason for Visit Right Knee Arthritis Ht/WT & BMI Height (Feet): 5 Height (Inches): 10.50 Weight (Kilograms): 100.3 Body Mass Index 31.00 Allergies Coded Allergies: codeine (Unverified Allergy, Unknown, 12/16/16) hydrocodone (Verified Allergy, Unknown, gi upset, 06/27/16) Uncoded Allergies: CODIENE (Allergy, Unknown, gi upset, 07/02/16) Past Anesthesia History Anesthesia History: Denies:: Abnormal Airway, Anesthesia Reactions, Difficult Intubation, Fam Anesthesia Reaction Diabetes History Hx Diabetes?: No MRSA MRSA: No Medications Hypertension Medication: No Home Meds Incl Beta Zak: No Reported Medications Albuterol HFA (Proair HFA)8.5 Gm Hfa.aer.ad2 Puffs INHALATION Q4H PRN For Shortness of Breath #1 INHALER 12/10/16 Discontinued Reported Medications Gabapentin 100 Mg [id number] Mg PO TID 30 Days Ref 0 06/27/16 Discontinued Scripts oxyCODONE-Acetaminophen 5-325 mg 1 Each Tablet1-2 Tab PO Q4-6H PRN For Severe Pain #80 TABLET Prov:Michele Bboo PA-C 07/05/16 Hydroxyzine Pamoate (HydrOXYzine Pamoate)25 Mg [id number] Mg PO Q6H PRN For Restlessness #60 CAPSULE Prov:Michele Bobo PA-C 07/05/16 [Aspirin] 325 MG TABLET No Conflict [id number] Mg PO BID DVT prophylaxis #1 BOTTLE Prov:Michele Bobo PA-C 07/05/16 History History of ENT Problems?: No HEENT History: Denies:: Abnormal Airway Cataracts Difficult Intubation Dysphagia Hearing Problem Sinus Problem TMJ Denture Type: None Teeth Condition: Within Normal Limits Hx of Heart Problems?: No Cardiovascular History: Denies:: AICD Abdominal Aortic Aneurism Cardiac Surgery Chest Pain Congestive Heart Failure Edema Heart Murmur Hypertension Irregular Heartbeat Pacemaker Hx of Respiratory Problem?: Yes Respiratory History: Positive for:: Asthma (with seasonal allergies) Use of Inhalers / NEBS Denies:: COPD Emphysema Oxygen Administration Pneumonia Tuberculosis Use of C-PAP Machine Hx Neurologic Problems?: No Neurological History: Denies:: CVA Dementia Dizziness Headaches Multiple Sclerosis Parkinson's Disease Seizures Hx of GI Problems?: Yes Hx of Problems?: No Genitourinary History: Denies:: Kidney Stones Urinary Tract Infection Male Hx: Denies:: Prostate Problems Scrotal Mass Testicular Surgery Skin History: Denies:: History Skin Disorders? Pressure Ulcers Hx Musculoskeletal Problems?: Yes Musculoskeletal History: Positive for:: Back Injury (hx back injury 2004, [facility]) Musculoskeletal Trauma (left knee current admission problem) Denies:: Joint Replacement Systemic Lupus Hx of Psycho/Social Problems?: No Psycho Social History: Denies:: Anxiety Hx Depression Hx Surgeries?: Yes (CTR, knee scope) Hx Any Other Health Problems?: Yes Other History: Denies:: Cancer Thyroid Disease History Blood Transfusions: Denies:: Blood Transfusions Hx Diabetes: No Hx Alcohol Use: YesHx Substance Use: Yes (marijuana daily) Smoking Status: Former Smoker Have You Smoked inLast 12 mo: No Stop/Bang S-Snoring: Do You Snore Loudly: No T-Tired: feel tired, fatigued: No O-Obsered: Observed not breath: No P-Blood Pressure: treated: No B- Body Mass Index > 35 kg/m2: No A- Age over 50: Yes N- Neck Large Circumference: No G- Gender Male: Yes LAWRENCE Total Score: 2 LAWRENCE Risk Assessment: Low Risk, <3 Yes Risk Assessment Category Category 1A: Patient has history of documented sleep apnea, and HAS NOT received any narcotic, sedative or anesthesia administration during this stay. Category 1B: Patient has history of documented sleep apnea, and HAS received any narcotic , sedative or anesthesia administration during this stay Category 2: Patient has SUSPECTED Obstructive Sleep Apnea, and HAS received any narcotic , sedative or anesthesia administration during this stay. Category 3: Patient has SUSPECTED Obstructive Sleep Apnea and HAS NOT received narcotic, sedative or anesthesia administration during this stay. Category 4: Outpatient in Procedural Areas with known sleep apnea or who screen positive for High Risk via the STOP/BANG questionnaire. Exam Exam Vital Signs Vital Signs Date Time Temp Pulse Resp B/P Pulse Ox O2 Delivery O2 Flow Rate FiO2 12/17/16 06:10 36.2 65 18 146/86 97 Room Air General Appearance: Alert HEENT/AIRWAY: MP 1, Neck Movement (FROM, 3 FB) Lungs: Clear to Auscultation Heart: Regular Rate/Rhythm Meds/Labs/Diagnostics Admission Meds Current Medications Lactated Ringer's (Lr) 1,000 ml @ 120 mls/hr Q8H20M IV Last administered on t 05:42; Start 12/17/16 at 05:00; Stop 12/17/16 at 13:19 Plan Impression Patient chart reviewed, patient interviewed and anesthestic plan with risks, benefits, and alternatives discussed, and informed consent obtained. NPO per Anesth. Guidelines: Yes ASA Physical Status: ASA2 Mod Systemic Disease Anesthetic Plan: Regional Block, Ultra Sound, SAB Bene/Risks/Altern/Consents: Yes HP Complete Prior to Induction: Yes Other Discussed SAB with adductor canal block +/- GA. All questions were answered and he agrees to proceed. Haroon Patton MD Dec 17, 2016 07:00
[2016-12-17] MEDS ORDERED: HYDROmorphone 1 mg/mL Inj IVPUSH PRN (08:35)
[2016-12-17] MEDS ORDERED: EPHEDrine Sulfate 50 mg/mL Inj IVPUSH PRN (08:35)
[2016-12-17] MEDS ORDERED: Phenylephrine 10,000 mCg/mL Inj IVPUSH PRN (08:35)
[2016-12-17] MEDS ORDERED: Dexamethasone 4 mg/mL Inj IVPUSH PRN (08:35)
[2016-12-17] MEDS ORDERED: fentaNYL-PF 50 mCg/mL 2 mL Inj IVPUSH PRN (08:35)
[2016-12-17] MEDS ORDERED: MetoCLOpramide 5 mg/mL 2 mL Inj IVPUSH PRN (08:35)
[2016-12-17] MEDS ORDERED: Ondansetron 2 mg/mL 2 mL Inj IVPUSH PRN ×2 (08:35→09:40)
[2016-12-17] MEDS ORDERED: Sodium Biphos-Phos 133 mL Enema RECTAL PRN (09:40)
[2016-12-17] MEDS ORDERED: diphenhydrAMINE 25 mg Capsule PO PRN (09:40)
[2016-12-17] MEDS ORDERED: Magnesium Hydroxide 10 mL Oral Concentration PO PRN (09:40)
[2016-12-17] MEDS ORDERED: Polyethylene Glycol (PEG) 17 Gm Powder PO PRN (09:40)
--- NOTE | 2016-12-17 10:25 | OP ---
[address] [address] OPERATIVE REPORT PATIENT: SUYAPA KEITA : 1955 MR#: [id number] ADMIT: 12/17/2016 JOB ID: [id number] DATE OF SURGERY: 12/17/2016 PREOPERATIVE DIAGNOSIS(ES): Right knee degenerative joint disease. POSTOPERATIVE DIAGNOSIS(ES): Right knee degenerative joint disease. PROCEDURE: Right total knee arthroplasty. SURGEON: Javed Cortez DO UNDERLINER: Yary Hair PA-C. INDICATIONS: The patient is a 61-year-old male with right knee severe degenerative arthritis who has failed conservative measures and wished to proceed with a right total knee arthroplasty. We discussed the risks, benefits, and possible complications of surgery. All questions were answered and he wished to proceed. A surgical aide was required for the successful completion of this procedure. PROCEDURE IN DETAIL: The patient was brought to the operating room. He was given a preoperative antibiotic and 1 g of TXA prior to incision. A surgical time-out was performed. The right knee was sterilely prepped and draped. A tourniquet was used for hemostasis. An incision was made over the anteromedial knee longitudinally. Dissection was carefully carried through the subcutaneous tissue. Electrocautery was used for hemostasis. A split was then made in the quad tendon leaving a cuff of tissue for repair. This was taken along the medial retinaculum and down onto the proximal medial tibial face. The patella was everted. A portion of the fat pad was resected. The femur was then instrumented with intramedullary red and the distal femoral cutting guide was placed with 10 mm planned resection and 5 degrees valgus. The block was pinned into position. The cut was performed. Next, the tibia was addressed with the extramedullary tibial cutting guide. Care was taken to ensure that this was placed parallel to the long axis of the tibia. The tibial guide was pinned into position and the cut was performed completed with an osteotome and removed. The medial and lateral menisci were removed at this point. The femur was then sized, felt to be a size 7 and the four in one cutting block was drilled for and placed with 3 degrees of external rotation. The distal femoral cuts were performed and then the box cut was performed. The tibia was then sized and felt to be a size 6 and a trial was performed with a 7 femur, 6 tibia. It was quite tight medially so some additional medial release was performed and ultimately we went up to an 8 poly which had allowed for full flexion, full extension with equal gaps medially and laterally. The patella was resurfaced with a free hand type technique, cut from an initial thickness of 24 to a thickness of 14. A 41 mm patellar button was chosen, drilled for, trialed, and had excellent tracking. The tibia was drilled and punched. The femur was drilled and the bony surfaces were washed and dried. The posterior capsule was injected with a mixture of Exparel, Marcaine, and saline. The components were then cemented into position beginning with the tibia, followed by the femur and the patella. All excess cement was removed and once the cement had solidified an 8 mm poly was impacted in position. Allowed for full flexion and full extension with equal gaps. The wound was then closed with #1 Surgilon and 0-Vicryl to repair the quad tendon and capsule. The subcu was closed with 2-0 V-Loc and the skin was closed with a running subcuticular 3-0. A mixture of Exparel and Marcaine and saline was also added to the subcu as an adjunct local anesthetic. Sterile dressings were applied. Patient tolerated the procedure well. BLOOD LOSS: 50 cc. POSTOPERATIVE PROTOCOL: Have the patient weightbear to tolerance. Use walker for ambulation as needed and plan for Lovenox for DVT prophylaxis and Percocet for postop pain.
--- NOTE | 2016-12-17 10:40 | DRSVH ---
PROCEDURE: X-RAY RIGHT KNEE, ONE OR TWO VIEWS ([id number]) INDICATIONS: post op TECHNIQUE: 2 view(s) of the knee acquired. COMPARISON: None. FINDINGS: Bones: Patient is status post knee joint arthroplasty. Hardware components are in expected position s. Visualized bony structures are intact. Soft tissues: Overlying postoperative changes are noted. IMPRESSION: Status post right knee arthroplasty. No gross complication. Dictated by: Amanda Niño M.D. on 12/17/2016 at 10:37 Approved by: Amanda Niño M.D. on 12/17/2016 at 10:38
--- NOTE | 2016-12-17 11:36 | PCM.ANEP1 ---
Post Anesthesia PACU Phase 1 Assessment Vital Signs Vital Signs Date Time Temp Pulse Resp B/P Pulse Ox O2 Delivery O2 Flow Rate FiO2 12/17/16 11:29 68 14 130/83 96 Room Air 12/17/16 11:24 19 98 12/17/16 11:15 65 15 129/76 97 Room Air 12/17/16 11:00 57 14 141/84 95 Room Air 12/17/16 10:45 36.6 60 16 131/82 97 Room Air 12/17/16 10:30 58 13 117/80 95 Room Air 12/17/16 10:15 59 14 125/78 95 Room Air 12/17/16 10:10 15 97 12/17/16 10:10 62 13 127/80 97 Room Air 12/17/16 10:05 65 13 127/80 94 Room Air 12/17/16 10:00 36.5 67 15 136/87 97 Room Air 12/17/16 06:10 36.2 65 18 146/86 97 Room Air Anesthetic Administered: SAB Level of Alertness: Awake, talking PATHAK's with Equal Strength: No Pain: No Nausea or Vomiting: No CV Function & Hydration Stable: Yes Airway Device: Oxygen Delivery: Room Air Lungs: Clear to Auscultation Dermatome Level: L3,4 (Thigh) PACU Phase 2 Assessment Complications: No Follow up Care: N/A Patient Instructions Provided: N/A Haroon Patton MD Dec 17, 2016 11:36
[2016-12-17] MEDS: HYDROmorphone 0.5 mg/0.5 mL iSecure Syringe IVPUSH PRN ×2 (12:08→15:42)
[2016-12-17] MEDS: oxyCODONE-Acetamin 5-325 mg Tablet PO PRN (12:08)
[2016-12-17] MEDS: 0.9% Sodium Chloride 1,000 ML IV SCH ×2 (12:09→22:40)
[2016-12-17] MEDS ORDERED: fentaNYL-PF 50 mCg/mL 2 mL Inj ONE (13:25)
[2016-12-17] MEDS ORDERED: Propofol 10,000 mCg/mL 20 mL Inj ONE (13:25)
[2016-12-17] MEDS ORDERED: EPINEPHrine 0.1 mg/mL 10 mL Syringe ONE (13:25)
[2016-12-17] MEDS: CeFAZolin Inj 2 GM in IV Premix 1 EACH IV SCH ×2 (15:47→23:54)
[2016-12-17] MEDS: Sodium Chloride LOK Flush 10 mL Syringe IV SCH (16:30)
[2016-12-17] MEDS ORDERED: Albuterol 2.5 mg/3 mL Inhalation Solution NEB PRN (20:16)
[2016-12-17] MEDS: Senna-Docusate 8.6-50 mg Tablet PO SCH (20:34)
[2016-12-18] MEDS: Sodium Chloride LOK Flush 10 mL Syringe IV SCH ×4 (00:30→23:09)
[2016-12-18 00:45] VITALS: BP 148/82; PULSE 84; RESP 16; O2SAT 95
[2016-12-18 05:40] VITALS: BP 143/84; PULSE 79; RESP 16; O2SAT 94
[2016-12-18] MEDS: 0.9% Sodium Chloride 1,000 ML IV SCH ×2 (05:40→15:40)
[2016-12-18 07:14] LABS: BASOPHILS % (AUTO) 0.3 % (0-3); EOSINOPHILS % (AUTO) 1.8 % (0-5); Mean Corpuscular Hemoglobin 30.9 pg (27.0-35.0); Mean Corpuscular Volume 91.5 fL (81-100); Platelet Count 202 bil/L (150-400)
[2016-12-18 08:04] VITALS: BP 149/80; PULSE 69; RESP 17; O2SAT 96
[2016-12-18] MEDS: oxyCODONE-Acetamin 5-325 mg Tablet PO PRN ×4 (08:12→23:09)
[2016-12-18] MEDS: hydrOXYzine Pamoate 25 mg Capsule PO PRN ×4 (08:12→23:09)
[2016-12-18] MEDS: Senna-Docusate 8.6-50 mg Tablet PO SCH ×2 (08:12→19:40)
--- NOTE | 2016-12-18 10:03 | PCM.PNORTH ---
Subjective Date of Service: Dec 18, 2016 Visit Information: Reason for Visit Right Knee Arthritis Surgery/Surgery Date RIGHT TOTAL KNEE 12/17/16 Post-Op Day # 1 Date of Admission: Dec 17, 2016 at 11:48 Hospital Day # Subjective Patient took a few steps at bedside last night. He walked 100 feet in the hallway this morning. He has 15 stairs to do at home. Plan is for discharge home tomorrow morning. The patient had the other knee replaced last June and used aspirin for DVT prophylaxis. He will like to do the same with this knee if possible. He is currently on Lovenox. Postop General: No Complaints, No Shortness of Breath, No Chest Pain, Good Appetite Pain Management: PO, IV Push Objective Exam Objective Patient is seen lying in bed Vital Signs and I/O Vital Sign - Last Date Time Temp Pulse Resp B/P Pulse Ox O2 Delivery O2 Flow Rate FiO2 12/18/16 08:04 36.5 69 17 149/80 96 Room Air Intake and Output 12/17/16 12/17/16 12/18/16 Cumulative From/Thru 15:00 23:00 07:00 12/10/16 13:06 - 12/18/16 05:04 Intake Total 1220 ml 1375 ml 1168 ml 3763 ml Output Total 50 ml 1200 ml 1250 ml Balance 1170 ml 175 ml 1168 ml 2513 ml Intake Oral 800 ml 800 ml IV Total 1220 ml 575 ml 1148 ml 2943 ml Tube Irrigant 20 ml 20 ml Output Urine Total 1200 ml 1200 ml Estimated Blood Loss 50 ml 50 ml Lab & Micro Results Laboratory Tests Test 12/18/16 06:50 White Blood Count 8.9th/mm3 (3.8-10.1) Red Blood Count 4.33mil/mm3 (4.40-5.80) Hemoglobin 13.4g/dL (13.8-17.2) Hematocrit 39.6% (41.0-50.0) Mean Corpuscular Volume 91.5fL (81-100) Mean Corpuscular Hemoglobin 30.9pg (27.0-35.0) Mean Corpuscular Hemoglobin Concent 33.8% (32.0-37.0) Red Cell Distribution Width 13.7% (12.3-15.4) Platelet Count 202bil/L (150-400) Neutrophils (%) (Auto) 65.0% (40-74) Lymphocytes (%) (Auto) 16.8% (14-46) Monocytes (%) (Auto) 16.0% (4-12) Eosinophils (%) (Auto) 1.8% (0-5) Basophils (%) (Auto) 0.3% (0-3) Sodium Level 138mEq/L (134-144) Potassium Level 4.1mEq/L (3.5-5.2) Chloride Level 102mEq/L (97-108) Carbon Dioxide Level 22mmol/L (18-29) Blood Urea Nitrogen 17mg/dL (8-27) Creatinine 0.69mg/dL (0.76-1.27) Estimat Glomerular Filtration Rate 124mL/min (>59) Glucose Level 144mg/dL (60-99) Calcium Level 8.6mg/dL (8.5-10.1) Result Diagram: 12/18/16 0650 12/18/16 0650 General Appearance: Alert, Oriented X3, Cooperative, No Acute Distress Extremities: Distal Pulses Palpable, No Compartment Syndrom Noted, Thigh & Calf Soft/Nontender Postop Sensory Motor: Distal Motor Intact, Distal Sensation Intact, NVI Distally SURGICAL WOUND : Wound Location/Description Right knee: Surgical dressing is clean, dry and intact. No direct observation of the wound Activity: Activity per PT Catheters: None Assessment & Plan Impression POD #1 right total knee arthroplasty Problems: Plan Weightbearing: Weightbearing as tolerated with walker DVT prophylaxis: Lovenox 40 mg subcutaneous 2 weeks followed by aspirin 325 mg twice a day 4 weeks. I will check with Dr. Cortez if that can be changed to aspirin for 6 weeks Physical therapy for transfers, progressive ambulation, therapeutic exercise Wound care: PA will change dressing tomorrow Discharge plan: Discharge home tomorrow morning after therapy to review stairs. Start outpatient physical therapy next week Follow-up plan: In 2 weeks at [facility] with PA for wound check and at [address] Cortez with x-rays Pain Management: Dilaudid, Toradol, oxycodone, Vistaril, Percocet VTE Prophylaxis: Sub-Q Enoxaparin, SCDs Resuscitation Status: CPR: Attempt Resuscitation CoalfieldYary Storm PA-C Dec 18, 2016 10:03
[2016-12-18 12:13] VITALS: BP 150/82; PULSE 70; RESP 17; O2SAT 96
[2016-12-18 16:50] VITALS: BP 144/81; PULSE 72; RESP 18; O2SAT 96
[2016-12-18 19:46] VITALS: BP 114/80; PULSE 90; RESP 17; O2SAT 95
[2016-12-19] MEDS: 0.9% Sodium Chloride 1,000 ML IV SCH (00:59)
[2016-12-19] MEDS: hydrOXYzine Pamoate 25 mg Capsule PO PRN ×2 (05:11→08:52)
[2016-12-19] MEDS: oxyCODONE-Acetamin 5-325 mg Tablet PO PRN ×2 (05:11→08:53)
[2016-12-19 05:20] VITALS: BP 161/79; PULSE 83; RESP 16; O2SAT 96
[2016-12-19] MEDS: Sodium Chloride LOK Flush 10 mL Syringe IV SCH (08:50)
[2016-12-19] MEDS: Senna-Docusate 8.6-50 mg Tablet PO SCH (08:50)
[2016-12-19 08:52] LABS: Mean Corpuscular Volume 92.6 fL (81-100)
[2016-12-19 08:53] LABS: BASOPHILS % (AUTO) 0.4 % (0-3); EOSINOPHILS % (AUTO) 2.5 % (0-5); MONOCYTES % (AUTO) 15.1 % (4-12); Mean Corpuscular Hemoglobin 31.1 pg (27.0-35.0); Platelet Count 191 bil/L (150-400)
--- NOTE | 2016-12-19 10:27 | PCM.PNORTH ---
Subjective Date of Service: Dec 19, 2016 Visit Information: Reason for Visit Right Knee Arthritis Surgery/Surgery Date RIGHT TOTAL KNEE 12/17/16 Post-Op Day # Date of Admission: Dec 17, 2016 at 11:48 Hospital Day # Subjective Palpation sleeping and easily awakened. Sitting up in bed with no complaints of pain at this time. Patient has undergone a relatively recent left total knee arthroplasty and is from A with the process. We have discussed discharge to home today where he states he has caregivers available to him. Postop General: No Complaints, No Shortness of Breath, No Chest Pain, Good Appetite Pain Management: PO Objective Exam Objective Alert and oriented 3 and pleasant. Interoperative dressing is clean, dry and intact. Interoperative dressing is changed postop dressing today with new Silverlon applied and held in place with Issac wrap. Patient has been advised to use his compression hose as a method of keeping his bandage in place once these are today. Calf and thigh are soft and nontender. Toe wiggle and sensation are intact at right lower extremity distally Sharma is absent 875 200 feet with formal physical therapy on 12/18/2016. Patient is under going started draining at this time. Vital Signs and I/O Vital Sign - Last Date Time Temp Pulse Resp B/P Pulse Ox O2 Delivery O2 Flow Rate FiO2 12/19/16 05:20 36.6 83 16 161/79 96 Room Air Intake and Output 12/18/16 12/18/16 12/19/16 Cumulative From/Thru 15:00 23:00 07:00 12/10/16 13:06 - 12/19/16 05:20 Intake Total 560 ml 1353 ml 836 ml 6512 ml Output Total 1300 ml 1050 ml 1150 ml 4750 ml Balance -740 ml 303 ml -314 ml 1762 ml Intake Oral 560 ml 1040 ml 836 ml 3236 ml IV Total 313 ml 3256 ml Tube Irrigant 20 ml Output Urine Total 1300 ml 1050 ml 1150 ml 4700 ml Estimated Blood Loss 50 ml # Bowel Movements 0 0 0 0 Lab & Micro Results Laboratory Tests Test 12/19/16 05:50 White Blood Count 10.1th/mm3 (3.8-10.1) Red Blood Count 4.18mil/mm3 (4.40-5.80) Hemoglobin 13.0g/dL (13.8-17.2) Hematocrit 38.7% (41.0-50.0) Mean Corpuscular Volume 92.6fL (81-100) Mean Corpuscular Hemoglobin 31.1pg (27.0-35.0) Mean Corpuscular Hemoglobin Concent 33.6% (32.0-37.0) Red Cell Distribution Width 13.5% (12.3-15.4) Platelet Count 191bil/L (150-400) Neutrophils (%) (Auto) 61.0% (40-74) Lymphocytes (%) (Auto) 20.8% (14-46) Monocytes (%) (Auto) 15.1% (4-12) Eosinophils (%) (Auto) 2.5% (0-5) Basophils (%) (Auto) 0.4% (0-3) Sodium Level 136mEq/L (134-144) Potassium Level 3.9mEq/L (3.5-5.2) Chloride Level 100mEq/L (97-108) Carbon Dioxide Level 21mmol/L (18-29) Blood Urea Nitrogen 13mg/dL (8-27) Creatinine 0.66mg/dL (0.76-1.27) Estimat Glomerular Filtration Rate 131mL/min (>59) Glucose Level 133mg/dL (60-99) Calcium Level 8.7mg/dL (8.5-10.1) Result Diagram: 12/19/16 0550 12/19/16 0550 General Appearance: Alert, Oriented X3, Cooperative, No Acute Distress Extremities: No Compartment Syndrom Noted, Thigh & Calf Soft/Nontender Postop Sensory Motor: Distal Motor Intact, Movement in Toes, Distal Sensation Intact Activity: Activity per PT (weightbearing as tolerated to the right lower extremity using front-wheeled walker) Catheters: None Assessment & Plan Impression Patient is a 61-year-old male who is undergone a right total knee arthroplasty on 12/17/2016. He is had a previous left total knee arthroplasty and is familiar with the process. He has participated well with formal physical therapy and anticipates discharge to home today on 12/19/2016. Problems: Plan Postop day #2 from right total knee arthroplasty performed on 12/17/[address] Javed Cortez. Continue weightbearing as tolerated on the right lower extremity using front- wheeled walker. Continue formal physical therapy for mobility, gait and safety. Please complete stair training today in anticipation of discharge. Patient should begin formal physical therapy as soon as possible after discharge and has been given an order for this. Continue by mouth pain medication in the form of Percocet 5/325 with Vistaril 25. Discontinue Lovenox 40 mg subcutaneous daily for DVT prophylaxis and substitute ASA 325 mg EC by mouth twice a day 6 weeks postop for DVT prophylaxis. This change was communicated to me by Olinda Hair PA-C as communicated to her by Dr. Javed Cortez. Interoperative dressings changed postoperative dressing today and surgical incision is in good condition. Nursing please fit bilateral thigh-high HAJA hose as ordered today. Issac wrap and right knee may be removed and HAJA hose may be used to hold the dressing in place. Follow up in 2 weeks at [facility] orthopedic clinic with mid-level provider for wound check and suture removal. Follow-up in 6 weeks at [facility] orthopedic clinic with Dr. Javed Cortez with right two-view knee x-rays on arrival. Discharge today to home with spouse as caregiver on 12/19/2016 after stair training is completed by physical therapy. VTE Prophylaxis: Sub-Q Enoxaparin (Lovenox 40 mg subcutaneous daily has been discontinued per Dr. Deleon and patient is moved to ASA 325 EC by mouth twice a day 6 weeks.), SCDs (left lower extremity SCD), HAJA Hose (bilateral thigh-high HAJA hose), Other (ASA 325 mg EC by mouth twice a day 6 weeks postop for DVT prophylaxis.) Resuscitation Status: CPR: Attempt Resuscitation Michele Bobo PA-C Dec 19, 2016 10:27
--- NOTE | 2016-12-19 10:39 | PCM.DIORTH ---
Ortho Discharge Instruction Date of Service: Dec 19, 2016 Dates of Hospitalization Date of Hospital Admission Dec 17, 2016 at 11:48 Providers Admitting Physician: Javed Cortez DO Primary Care Physician: Yonatan Corey MD Attending Physician: Javed Cortez DO Diet Discharge Diet: No restrictions Activity Discharge Activity-General: Try not to overdue, Be up and about, Balance rest and activity, Ice incision 3-5 time/day for 20min, Activity as pain allows, Activity as energy allows, No driving while taking narcotic Right Upper Extremity: Weight bearing as tolerated Discharge Assist Device: Front Wheeled Walker Dressing and Incisional Care Discharge Dressing Care: Keep dressing clean, dry & intact (keep dressing clean dry and intact. Dressing may be removed after 3 days and patient may shower wound if wound is dry.), Allow Steri Stripes to fall off Discharge Hygiene: May shower after (patient may shower 3 days after discharge if wound has been dry for at least 1 day.), DO NOT soak incision under water, NO bathtub, hot tub or whirlpool Additional Instructions Discharge Instructions Postop day #2 from right total knee arthroplasty performed on 12/17/[address] Javed Cortez. Continue weightbearing as tolerated on the right lower extremity using front- wheeled walker. Continue formal physical therapy for mobility, gait and safety. Please complete stair training today in anticipation of discharge. Patient should begin formal physical therapy as soon as possible after discharge and has been given an order for this. Continue by mouth pain medication in the form of Percocet 5/325 with Vistaril 25. Discontinue Lovenox 40 mg subcutaneous daily for DVT prophylaxis and substitute ASA 325 mg EC by mouth twice a day 6 weeks postop for DVT prophylaxis. This change was communicated to me by Olinda Hair PA-C as communicated to her by Dr. Javed Cortez. Interoperative dressings changed postoperative dressing today and surgical incision is in good condition. Nursing please fit bilateral thigh-high HAJA hose as ordered today. Issac wrap and right knee may be removed and HAJA hose may be used to hold the dressing in place. Keep dressing clean dry and intact for 3 days and then dressing may be removed and patient may shower wound if wound is in good condition and has been dry for at least 1 day. Follow up in 2 weeks at [facility] orthopedic clinic with mid-level provider for wound check and suture removal. Follow-up in 6 weeks at [facility] orthopedic [facility] with Dr. Javed Cortez with right two-view knee x-rays on arrival. Discharge today to home with spouse as caregiver on 12/19/2016 after stair training is completed by physical therapy. Follow Up Plan Follow Up Plan Patient will follow up in 2 weeks, 6 weeks in 12 weeks. Patient will follow up when necessary in the interim. Follow-up Provider (F9): Javed Cortez DO Follow-up appointment: Weeks (follow-up in 2 weeks at [facility] orthopedic [facility]) Call your provider for: Fever, Chills, Shortness of breath, Vomitting, Drainage at incision Mcihele Bobo PA-C Dec 19, 2016 10:39
[2016-12-19] MEDS ORDERED: ASPI325T32 PO (10:46)
[2016-12-19] MEDS ORDERED: OXYC1TAB24 PO (10:46)
[2016-12-19] MEDS ORDERED: HYDR-3797 PO (10:46)
[2016-12-19] MEDS ORDERED: DOCU-41 PO (10:46)
--- NOTE | 2016-12-19 10:50 | PCM.DC.ORT ---
Discharge Summary Date of Service: Dec 19, 2016 Date of Hospital Admission: Dec 17, 2016 at 11:48 Date of Surgery: Dec 17, 2016 Date of Discharge: Dec 19, 2016 Reason for Hospitalization: Severe right knee osteoarthritis Procedures Performed: Right total knee arthroplasty Hospital Course: Patient was admitted to the preoperative care unit on 12/17/2016 and upon processing was taken to the operating room where his procedure was performed without incident. Patient was awakened and transferred to the postoperative care unit upon recovery from anesthesia and was transferred to the orthopedic care unit. Patient participated well with formal physical therapy and received recommendation for discharge to home. Problems: (1) Arthritis of right knee Status: Acute ICD Code: M17.11 Disposition: Discharge to home with spouse as caregiver Orthopedic Follow up Plan: In Two Weeks in my clinic (follow-up in 2 weeks at [facility] orthopedic clinic) Discharge Instructions: Postop day #2 from right total knee arthroplasty performed on 12/17/[address] Javed Cortez. Continue weightbearing as tolerated on the right lower extremity using front- wheeled walker. Continue formal physical therapy for mobility, gait and safety. Please complete stair training today in anticipation of discharge. Patient should begin formal physical therapy as soon as possible after discharge and has been given an order for this. Continue by mouth pain medication in the form of Percocet 5/325 with Vistaril 25. Discontinue Lovenox 40 mg subcutaneous daily for DVT prophylaxis and substitute ASA 325 mg EC by mouth twice a day 6 weeks postop for DVT prophylaxis. This change was communicated to me by Olinda Hair PA-C as communicated to her by Dr. Javed Cortez. Interoperative dressings changed postoperative dressing today and surgical incision is in good condition. Nursing please fit bilateral thigh-high HAJA hose as ordered today. Issac wrap and right knee may be removed and HAJA hose may be used to hold the dressing in place. Follow up in 2 weeks at [facility] orthopedic clinic with mid-level provider for wound check and suture removal. Follow-up in 6 weeks at [facility] orthopedic clinic with Dr. Javed Cortez with right two-view knee x-rays on arrival. Discharge today to home with spouse as caregiver on 12/19/2016 after stair training is completed by physical therapy. Management Plan: Follow-up in 2 weeks, 6 weeks and 12 weeks postoperatively. Follow up when necessary in the interim. Albuterol HFA (Proair HFA) 8.5 Gm Hfa.aer.ad 2 PUFFS INHALATION Q4H PRN PRN For Shortness of Breath Aspirin (Aspirin) 325 Mg Tablet 325 MG PO BID Docusate Sodium (Colace) 100 Mg Capsule 100 MG PO BID Hydroxyzine Pamoate (HydrOXYzine Pamoate) 25 Mg Capsule 25 MG PO Q4-6H PRN PRN For Spasm and/or Restlessness oxyCODONE-Acetaminophen 5-325 mg (oxyCODONE-Acetaminophen 5-325 mg) 1 Each Tablet 1-2 TAB PO Q4-6H PRN PRN For Pain Michele Bobo PA-C Dec 19, 2016 10:50
== END 2016-12-19 11:41 | disposition home or self-care (01) | DRG 470 ==
LOC: SAS 05:38 → OSC 11:48
PROVIDERS: ADMIT Orthopaedic Surgery; ATTEND Orthopaedic Surgery
PROC: 0SRC0J9 Replacement of Right Knee Joint with Synthetic Substitute, Cemented, Open Approach (ICD-10-PCS; principal; 2016-12-17 07:30)
DX: M17.11 Unilateral primary osteoarthritis, right knee (principal)